=== PATIENT | female | born 1970 | race Caucasian/White ===

== ENCOUNTER 2019-12-27 10:19 | Outpatient (CLI) | payer MEDICARE ==
--- NOTE | 2019-12-27 13:32 | MRI ---
LUMBAR SPINE MRI WITHOUT CONTRAST: DATE: 12/27/2019. HISTORY: Lumbar radicular pain. TECHNIQUE: Multiplanar multisequence MR imaging of the lumbar spine obtained without contrast. FINDINGS: On the basis of 5 lumbar-type vertebral bodies, the conus medullaris terminates at the L1 level. There is disk space narrowing with degenerative end plate change and end plate edema anteriorly at T1 1-12 with anterior osteophyte formation. The intervertebral disk demonstrates no T2 hyperintensity. This edema may be on the basis of acute Schmorl's nodes. T12-L1: Unremarkable. L1-2: Minimal disk bulge. No central canal or neural foraminal stenosis. L2-3: Disk desiccation, mild disk space narrowing, and mild disk bulge with no significant central c anal stenosis. Bilateral facet hypertrophy with no significant neural foraminal stenosis. L3-4: There is disk desiccation and mild disk bulge with no significant central canal stenosis. Mil d bilateral facet hypertrophy with no significant neural foraminal stenosis. L4-5: There is disk space narrowing with disk desiccation and disk bulge. Bilateral facet hypertrop hy noted. Mild central canal stenosis and mild bilateral neural foraminal stenosis. L5-S1: There is a left foraminal disk protrusion. There is bilateral facet hypertrophy. Mild bilat eral neural foraminal stenosis. No significant central canal stenosis. The imaged retroperitoneal structures demonstrate no worrisome findings. IMPRESSION: Degenerative changes within the lumbar spine as described above. POS: [facility]
== END 2019-12-27 10:20 | disposition home or self-care (01) ==
LOC: BICMRI 10:19
PROVIDERS: ATTEND Psychiatry & Neurology Neurology
DX: M47.26 Other spondylosis with radiculopathy, lumbar region (principal)
CPT/HCPCS: 72148

== ENCOUNTER 2021-02-27 12:37 | Outpatient (CLI) | payer MEDICARE | END 2021-02-27 12:38 | disposition home or self-care (01) | LOC: TBSIIMAG 12:37 | PROVIDERS: ATTEND Neurological Surgery | DX: M54.5 Low back pain (principal); M54.6 Pain in thoracic spine; M47.816 Spondylosis without myelopathy or radiculopathy, lumbar region | CPT/HCPCS: 72146; 72148 ==